=== PATIENT | female | born 1960 | race Caucasian/White ===

== ENCOUNTER 2024-08-10 11:06 | Emergency (ER) | payer MEDICARE, SELFPAY ==
[2024-08-10 11:09] VITALS: BP 109/71; BMI 27.5
[2024-08-10 11:19] VITALS: BP 109/71
--- NOTE | 2024-08-10 11:20 | ED.GENMED ---
History of Present Illness
General
Chief Complaint: Abdominal Symptoms
Source: patient
Exam Limitations: none
Time Seen by Provider: 08/10/24 11:07
History of Present Illness
History of Present Illness:
64 year old female presents with 3 weeks of abdominal discomfort nausea vomiting and diarrhea. She is a type II diabetic. She has been on Mounjaro for 7 months. She has a history of diverticulitis requiring colon resection. She denies any blood
in the vomit or the stool. She denies fevers. She is unable to tolerate anything by mouth that comes right back up. No recent change in her medicine otherwise. No recent antibiotics. No known sick contacts. No other complaints at this time
Past History
Past History
ED Past Medical History: HTN, Hypothyroidism and Other (Diverticulitis, rheumatoid arthritis, hypertension, cdif)
ED Past Surgical History: Cholecystectomy, Gynecological and Orthopedic
Social History
Tobacco: Non-smoker
Alcohol: None
Drug: None
Personal:
Living: with family
Employment: Not employed
Family History
Family History: Other (Father has ulcerative colitis)
Phy Exam
Physical Exam
Physical Exam:
General: Well-appearing female no acute respiratory distress
HEENT: Normocephalic atraumatic neck is supple
Heart: Regular rate and rhythm no murmurs
Lungs: Clear no wheeze
Abdomen soft but tender to the mid and left abdomen no guarding rebound normal bowel sounds
Extremities: No cyanosis
Skin: Warm no rash
Course
Orders/Labs/Results
Orders:
Orders
08/10/24 11:18
CT Abd/pelvis W Iv Cont Urgent
Comment:
Reason For Exam: left sided pain, vomiting, diarrhea
0.9% Sodium Chloride 1000 ml [Nss] 1,000 ml IV BOLUS
Ondansetron Injectable [Zofran] 4 mg IV NOW STA
08/10/24 11:39
Basic Metabolic Panel Urgent
Complete Blood Count/With Diff Urgent
08/10/24 12:05
Comprehensive Metabolic Panel Urgent
Lipase Urgent
Abnormal Lab Results
08/10/24 08/10/24
11:39 12:05
MCV 79.9 L fL
(81.0-99.0)
Glucose 104 H mg/dl 102 H mg/dl
(70-99) (70-99)
08/10/24 11:39
08/10/24 12:05
Vital Signs
Initial and Last Documented VS:
Initial Vital Signs
Temp Pulse Resp BP Pulse Ox
98.3 F 82 18 109/71 98
08/10/24 11:09 08/10/24 11:09 08/10/24 11:09 08/10/24 11:09 08/10/24 11:09
Last Documented Vital Signs
Temp Pulse Resp BP Pulse Ox
98.3 F 82 18 94/60 100
08/10/24 11:09 08/10/24 11:09 08/10/24 11:09 08/10/24 15:29 08/10/24 15:30
MDM/Problems Addressed
Differential Diagnosis Includes:
Vomiting nausea abdominal pain diarrhea. Differential could include viral illness versus adverse reaction to Mounjaro versus electrolyte abnormality. No recent antibiotics but if patient does give stool sample can test for C. difficile. Check
labs hydrate with fluids Zofran ordered for nausea. Given tenderness on exam CT ordered.
*Critical Care Note
Total Time (30-74mins, 75-104mins- exclusive of procedures): Not Applicable
Update Note
Update Note:
Workup here essentially negative with labs. 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 Recommended hydration. Prescribe Zofran. Stable for discharge with follow-up.
ED Attending Note
-
Portions of this chart may have been created with voice recognition software.� Occasional wrong word or��sound alike� substitutions may have occurred due to the inherent limitations of voice recognition software.
Discharge Plan
Departure
Patient Disposition: Home (Routine Discharge)
Date of Disposition: 08/10/24
Time of Disposition: 15:44
Patient with high blood pressure during this ER visit?: No
Discharge Problem:
Vomiting
Instructions: Nausea and Vomiting, Adult (DC)
Prescriptions:
New
ondansetron 4 mg tablet,disintegrating
4 mg PO TID PRN (Reason: nausea and vomiting) Qty: 10 0RF
No Action
levothyroxine [Synthroid] 75 MCG tablet
75 mcg PO SUTUWETHSA
levothyroxine 50 MCG tablet
50 mcg PO MOFR
atorvastatin 20 mg Tablet
20 mg PO QPM
sertraline 100 mg Tablet
100 mg PO DAILY
methylprednisolone 4 mg Tablet
8 mg PO DAILY
alprazolam 0.25 mg Tablet
0.25 mg PO DAILY
Patient Comments:
06/28/2023: last filled 05/05/22, 30 tabs [facility]
amitriptyline 25 mg Tablet
25 mg PO DAILY
metoprolol succinate 25 mg Tablet Extended Release 24 Hr
25 mg PO DAILY
fluticasone propionate 50 mcg/actuation [place],Suspension
1 spray INTRANASAL DAILY
dexlansoprazole 60 mg Capsule,Biphase Delayed Releas
60 mg PO DAILY
Vitamin B-12 1,000 mcg/mL Drops
1 ml PO MONTHLY
ondansetron 4 mg Tablet,Disintegrating
4 mg PO Q6H PRN (Reason: nausea)
hydrocodone-acetaminophen 5-325 mg Tablet
1 tab PO PRN PRN (Reason: pain)
insulin glargine [Lantus Solostar U-100 Insulin] 100 unit/mL (3 mL) insulin pen
25 unit SC QPM Qty: 15 5RF
Miconazole-3 200 mg Suppository
200 mg VAG HS Qty: 1 0RF
insulin aspart U-100 [Novolog FlexPen U-100 Insulin] 100 unit/mL (3 mL) Insulin Pen
15 unit SC AC Qty: 15 5RF
(DME) pen needle, diabetic [BD Ultra-Fine Raegan Pen Needle] 32 gauge x 5/32' needle
See Rx Instructions .Route Qty: 100 0RF
Rx Instructions:
As directed
(DME) lancets [BD Ultra Fine Lancets] 33 gauge misc
See Rx Instructions .Route Qty: 100 0RF
Rx Instructions:
As directed
(DME) blood sugar diagnostic Strip
See Rx Instructions .Route Qty: 100 0RF
Rx Instructions:
As directed
Referrals:
Sun Andrade CRNP [Family Provider] -
Activity Restrictions/Additional Instructions:
Drink plenty of fluid. Use Zofran if needed for nausea. Turn if worse otherwise follow-up with your doctor
Interventions
Interventions:
*Risk Screen - Suicide Last Done: 08/10/24 11:09
*General Assessment Last Done: 08/10/24 11:09
*Neglect/Abuse Screening Last Done: 08/10/24 11:09
ED- Fall Risk Assessment Last Done: 08/10/24 11:09
*ED COVID-19 Vaccine History Last Done: 08/10/24 11:09
EY-Unavef-Bopjoxpryn Assessment Last Done: 08/10/24 11:09
Discharge Date and Time
Print Language: TURKMEN
[2024-08-10 11:49] LABS: % Basophils 0.2 % (0-2); % Eosinophils 3.6 % (0-6); % Immature Granulocytes 0.2 % (0-0.5); % Lymphocytes 25.2 % (20.5-51.1); % Monocytes 6.2 % (1.7-9.3); % Neutrophils 64.6 % (42.2-75.2); Absolute Eosinophils 0.3 10^3/uL (0-0.7); Absolute Lymphocytes 2.1 10^3/uL (1.2-3.4); Absolute Monocytes 0.5 10^3/uL (0.1-0.6); Absolute Neutrophils 5.4 10^3/uL (1.4-6.5); Hematocrit 38.9 % (37.0-47.0); Hemoglobin 13.6 g/dL (12.0-16.0); Mean Corpuscular Hgb 27.9 pg (27.0-31.0); Mean Corpuscular Volume 79.9 fL (81.0-99.0); Mean Platelet Volume 9.1 fL (7.4-10.4); Nucleated Red Blood Cells % 0 %; Platelet Count 254 10^3/uL (130-400); Red Blood Cell Count 4.87 10^6/uL (4.20-5.40); White Blood Cell Count 8.3 10^3/uL (4.8-10.8)
[2024-08-10 12:00] VITALS: BP 93/70
[2024-08-10 12:11] LABS: Blood Urea Nitrogen 14 mg/dl (7-17); Calcium 9.6 mg/dl (8.4-10.2); Carbon Dioxide 28 mmol/L (22-30); Chloride 100 mmol/L (98-107); Estimated Creatinine Clearance 75 ml/min; Glucose 104 mg/dl (70-99); Sodium 142 mmol/L (135-145); eGFR > 60.00
[2024-08-10 12:38] LABS: ALT (SGPT) 22 U/L (0-35); AST (SGOT) 24 U/L (14-36); Albumin 4.4 g/dl (3.5-5.0); Alkaline Phosphatase 103 U/L (38-126); Blood Urea Nitrogen 14 mg/dl (7-17); Calcium 9.6 mg/dl (8.4-10.2); Carbon Dioxide 27 mmol/L (22-30); Chloride 99 mmol/L (98-107); Estimated Creatinine Clearance 75 ml/min; Glucose 102 mg/dl (70-99); Lipase 175 U/L (23-300); Potassium 3.7 mmol/L (3.5-5.1); Sodium 141 mmol/L (135-145); Total Bilirubin 1.2 mg/dl (0.2-1.3); Total Protein 7.1 g/dl (6.3-8.2); eGFR > 60.00
--- NOTE | 2024-08-10 12:46 | VATNOTE ---
Attempts to place INT unsuccessful,, PA to place US guided IV
[2024-08-10] MEDS: NSS 1000 IV (12:58)
[2024-08-10] MEDS: ZOFRAN 4 MG IV (12:58)
[2024-08-10 13:01] VITALS: BP 99/73
[2024-08-10 15:29] VITALS: BP 94/60
== END 2024-08-10 16:25 | disposition home or self-care (01) ==
LOC: EMR 11:06
PROVIDERS: Physician Assistant; EMERGENCY PHYSICIAN Emergency Medicine; FAMILY PHYSICIAN Nurse Practitioner Primary Care
DX: R11.2 Nausea with vomiting, unspecified (principal); R19.7 Diarrhea, unspecified; R10.9 Unspecified abdominal pain; E11.9 Type 2 diabetes mellitus without complications; E03.9 Hypothyroidism, unspecified; I10 Essential (primary) hypertension; Z87.19 Personal history of other diseases of the digestive system; Z90.49 Acquired absence of other specified parts of digestive tract; Z79.85 Long-term (current) use of injectable non-insulin antidiabetic drugs
CPT/HCPCS: 96374; 96361; 99284; 74177; 80048; 80053; 83690; 85025; Q9967

== ENCOUNTER 2025-08-07 01:55 | Emergency (ER) | payer MEDICARE, SELFPAY ==
[2025-08-07 02:06] VITALS: BP 118/74
[2025-08-07 02:34] LABS: Hematocrit 38.6 % (37.0-47.0); Hemoglobin 13.8 g/dL (12.0-16.0); Mean Corp Hgb Conc. 35.8 g/dL (33.0-37.0); Mean Corpuscular Volume 80.6 fL (81.0-99.0); Nucleated Red Blood Cells % 0 %; Platelet Count 243 10^3/uL (130-400); Red Cell Dist. Width 12.9 % (11.5-14.5)
[2025-08-07 02:58] LABS: ALT (SGPT) 78 U/L (0-35); AST (SGOT) 40 U/L (14-36); Albumin 4.4 g/dl (3.5-5.0); Alkaline Phosphatase 86 U/L (38-126); Blood Urea Nitrogen 13 mg/dl (7-17); Calcium 9.4 mg/dl (8.4-10.2); Carbon Dioxide 28 mmol/L (22-30); Chloride 104 mmol/L (98-107); Glucose 128 mg/dl (70-99); Potassium 3.5 mmol/L (3.5-5.1); Sodium 141 mmol/L (135-145); Total Protein 7.3 g/dl (6.3-8.2); eGFR > 60.00
[2025-08-07 03:55] VITALS: BP 100/62
[2025-08-07 05:46] VITALS: BP 130/101
[2025-08-07 05:50] VITALS: BMI 28.3
[2025-08-07 06:01] VITALS: BP 115/86
[2025-08-07 06:13] LABS: Lipase 140 U/L (23-300)
[2025-08-07] MEDS: TORADOL 15 MG IV ×2 (06:18→08:51)
--- NOTE | 2025-08-07 06:32 | ED.GENMED ---
History of Present Illness
<Anastasia Valencia PA-C - Last Filed: 08/07/25 14:27>
General
Chief Complaint: Flank Pain
Source: patient
Exam Limitations: none
Time Seen by Provider: 08/07/25 06:14
Nursing documentation reviewed up to this point in time: agreed with
History of Present Illness
History of Present Illness:
SEE mdm
Past History
<TREVON Ross Last Filed: 08/07/25 14:27>
Past History
ED Past Medical History: HTN, Hypothyroidism and Other (Diverticulitis, rheumatoid arthritis, hypertension, cdif)
ED Past Surgical History: Cholecystectomy, Gynecological and Orthopedic
Social History
Tobacco: Non-smoker
Alcohol: None
Drug: None
Personal:
Living: with family
Employment: Not employed
Family History
Family History: Other (Father has ulcerative colitis)
Phy Exam
<TREVON Ross Last Filed: 08/07/25 14:27>
Physical Exam
Physical Exam:
GENERAL: Alert , uncomfortable
EYE: pupils equal and reactive
NECK: Supple
ENT: o/p clr, mmm.
CARDIAC: Regular rate and rhythm .
LUNGS: Clear breath sounds bilaterally, no acute respiratory distress, no wheezes/rales/rhonchi
ABDOMEN: Soft, without focal tenderness, no r/g, no cvat, normal bowel sounds
Patient feels better with palpation on the left flank, there is no skin changes, no CVA tenderness, normal strength and sensation in the leg
NEUROLOGICAL: Alert and oriented, no focal neuro deficits
SKIN: Warm and dry, skin intact.
MUSCULOSKELETAL: No edema, well perfused. neg joss's sign
PSYCH: Normal and appropriate interaction.
Course
<Anastasia Valencia PA-C - Last Filed: 08/07/25 14:27>
Orders/Labs/Results
Orders:
Orders
08/07/25 02:24
CMP [Comprehensive Metabolic Panel] Urgent
Complete Blood Count/With Diff Urgent
Lipase Urgent
Comment: ADD ON
08/07/25 05:34
Add On- LAB Urgent
Tests Added?: Lipase
08/07/25 06:12
Ketorolac [Toradol] 15 mg IV NOW STA
08/07/25 06:25
CT Abd/pel Without Iv Or Oral Urgent
Comment:
Reason For Exam: L flank pain; nontender;
0.9% Sodium Chloride 1000 ml [Nss] 1,000 ml IV BOLUS
HYDROmorphone [Dilaudid] 1 mg IV NOW STA
Ondansetron Injectable [Zofran] 4 mg IV NOW STA
08/07/25 08:45
Ketorolac [Toradol] 15 mg IV NOW STA
08/07/25 08:51
Urinalysis Reflex To Culture Urgent
Date Specimen was Collected: 08/07/25
Time Specimen was Collected: 08:49
Urine Microscopic Reflex Cult Urgent
Urine Culture Urgent
SHANI Source: U
Specimen Description:
Date Specimen was Collected: 08/07/25
Time Specimen was Collected: 08:49
08/07/25 11:45
CT Abd/Pel (IV only)-DH only Urgent
Comment:
Reason For Exam: L flank pain, severe
HYDROmorphone [Dilaudid] 1 mg IV NOW STA
Abnormal Lab Results
08/07/25 08/07/25
02:24 08:51
MCV 80.6 L fL
(81.0-99.0)
Glucose 128 H mg/dl
(70-99)
AST 40 H U/L
(14-36)
ALT 78 H U/L
(0-35)
Leukocyte Esterase Rfl 1+ A
(Negative)
Urine Bacteria (Reflex) Few A
(Negative)
Urine Albumin (Reflex) 2+ A
(Neg - Trace)
08/07/25 02:24
08/07/25 02:24
Vital Signs
Initial and Last Documented VS:
Initial Vital Signs
Temp Pulse Resp BP Pulse Ox
37.1 C 95 18 118/74 97
08/07/25 02:06 08/07/25 02:06 08/07/25 02:06 08/07/25 02:06 08/07/25 02:06
Last Documented Vital Signs
Temp Pulse Resp BP Pulse Ox
36.4 C 85 14 115/86 92
08/07/25 06:00 08/07/25 11:00 08/07/25 11:00 08/07/25 06:01 08/07/25 08:00
Dorothylt;Zach Oliva, DO - Last Filed: 08/07/25 11:48>
Orders/Labs/Results
Orders:
Orders
08/07/25 02:24
CMP [Comprehensive Metabolic Panel] Urgent
Complete Blood Count/With Diff Urgent
Lipase Urgent
Comment: ADD ON
08/07/25 05:34
Add On- LAB Urgent
Tests Added?: Lipase
08/07/25 06:12
Ketorolac [Toradol] 15 mg IV NOW STA
08/07/25 06:25
CT Abd/pel Without Iv Or Oral Urgent
Comment:
Reason For Exam: L flank pain; nontender;
0.9% Sodium Chloride 1000 ml [Nss] 1,000 ml IV BOLUS
HYDROmorphone [Dilaudid] 1 mg IV NOW STA
Ondansetron Injectable [Zofran] 4 mg IV NOW STA
08/07/25 08:45
Ketorolac [Toradol] 15 mg IV NOW STA
08/07/25 08:51
Urinalysis Reflex To Culture Urgent
Date Specimen was Collected: 08/07/25
Time Specimen was Collected: 08:49
Urine Microscopic Reflex Cult Urgent
Urine Culture Urgent
SHANI Source: U
Specimen Description:
Date Specimen was Collected: 08/07/25
Time Specimen was Collected: 08:49
08/07/25 11:45
CT Abd/Pel (IV only)-DH only Urgent
Comment:
Reason For Exam: L flank pain, severe
HYDROmorphone [Dilaudid] 1 mg IV NOW STA
Abnormal Lab Results
08/07/25 08/07/25
02:24 08:51
MCV 80.6 L fL
(81.0-99.0)
Glucose 128 H mg/dl
(70-99)
AST 40 H U/L
(14-36)
ALT 78 H U/L
(0-35)
Leukocyte Esterase Rfl 1+ A
(Negative)
Urine Bacteria (Reflex) Few A
(Negative)
Urine Albumin (Reflex) 2+ A
(Neg - Trace)
08/07/25 02:24
08/07/25 02:24
Vital Signs
Initial and Last Documented VS:
Initial Vital Signs
Temp Pulse Resp BP Pulse Ox
37.1 C 95 18 118/74 97
08/07/25 02:06 08/07/25 02:06 08/07/25 02:06 08/07/25 02:06 08/07/25 02:06
Last Documented Vital Signs
Temp Pulse Resp BP Pulse Ox
36.4 C 85 14 115/86 92
08/07/25 06:00 08/07/25 11:00 08/07/25 11:00 08/07/25 06:01 08/07/25 08:00
<Anastasia Valencia PA-C - Last Filed: 08/07/25 14:27>
MDM/Problems Addressed
Differential Diagnosis Includes:
see MDM
MDM/Problems Addressed:
Note:
CHIEF COMPLAINT(S)
Severe back pain radiating to the front.
HISTORY OF PRESENT ILLNESS
The patient is a 65-year-old female with a history of bowel disease and bowel paucity, presenting with severe L back pain that started approximately four days ago. Initially described as sciatic pain, the discomfort now is concentrated in the center
of the back and radiates to the abdomen specifically L flank. The patient reports the sensation is extremely painful, to the extent that she 'cant even stand it� and rates it as so severe she 'could .�
The patient describes the pain as affecting the Left half of her body, extending from her back to the skin, which she notes feels warm and sore, although there is no visible rash. There is no history of fever, chills, diarrhea, or vomiting. The
patient has not noticed any urinary complaints or symptoms suggestive of a urinary tract infection. She notes that her pain improves with pressure on her abdomen. The patient has a history of significant bowel surgeries, including colectomies with
complications such as abscess formation and recurrent infections post-operatively.
PAST MEDICAL AND SURGICAL HISTORY
The patient has a history of bowel disease requiring multiple surgeries, including a colectomy and treatment for gastroparesis. She also reported past instances of ovarian abscesses.
CHRONIC MEDICAL CONDITIONS SIGNIFICANTLY AFFECTING CARE
Gastroparesis, requiring chronic medication to assist bowel function.
MEDICATIONS
The patient is currently taking Amitriptyline for bowel-related neuropathy and Vicodin for pain management, having taken two tablets before bed.
REVIEW OF SYSTEMS
- Musculoskeletal: Severe and persistent back pain radiating to the abdomen, worsened with movement.
- Integumentary: Skin on the right side feels warm and sore, but no rash is present.
- Gastrointestinal: No diarrhea; previous bowel surgery with significant past complications.
- Urinary: No frequency or urgency. Reports ability to provide a urine sample if needed.
PHYSICAL EXAM
- Skin: Warm and tender to touch over the back and right side, no rash noted.
- Abdomen: Pain alleviated by pressure; otherwise notable for soreness.
Nursing notes reviewed and vital signs reviewed.
PROBLEM LIST
Acute Problems:
- Severe back pain with possible radicular symptoms.
- Possible referred abdominal pain.
Chronic Problems:
- Gastroparesis.
- History of bowel disease and related complications.
PLAN
- Consider imaging studies to evaluate for potential renal calculi or other causes of referred pain.
- Urinalysis to rule out urinary tract infection.
- Administer alternative pain management medication with consideration of past medication history.
- Monitor skin for any delayed rash development suggestive of a zoster infection despite current lack of rash.
- Consider consulting surgery if symptoms persist or worsen, given the patients surgical history and complications.
DIFFERENTIAL DIAGNOSIS
The Differential Diagnosis includes, in no particular order and is not limited to:
- Sciatica
- Kidney stone
- Abdominal abscess
- Spinal cord pathology
- Referred pain from gastrointestinal pathology
- Osteomyelitis or vertebral infection
- Herpes zoster without current rash
- Abdominal aortic aneurysm
- Musculoskeletal strain
- Complex regional pain syndrome]]
65 Y/O F
some degree chronic pain but denies opiates daily
immunocompromised
'bowel paralysis', RA
has had multiple colitis/bowel resections
started with L sided back pain about 4 days ago with radiation to L flank
severe at times
feels like burning to skin and sensitive to light touch; feels better pressing the area in
no rash, fever, chills, dysuria, hematuria, vomiting, diarrhea
last bm a few days ago
doesn't feel like this is her bowels
on exam she has some skin sensitivie L flank but no tendernss
feels better with pressing on it
no hematuria
worse with position changes
sounds MSK back pain but pt says her pain was so severe t his AM she vomited and called 911
on exam pt is holding her side, feels better pressing it in
no abdominal tendenress
no rash
neg straight leg rasie
afebrile
nontoxic appearing
wbc normal
cr normal
CT stonesearch neg
pt was initially given toradol but keyes dno relief; given dilaudid and looked more comfortable though she was still c/o severe pain; she did admit that it improved some
her pain seems nerve=-like; no shingles rash
but has h/o DDD so perhaps radiculopathy pain
pending UA
would like to send pt home
will give 2nd dose of toradol
pt is not on daily steroids anymore
1130 - ua was unimpressive, 1+ LE, only a few wbc, few bacteria, some sqaumous cells
seen by ED attending
recommend given her level of pain to rescan with IV contrast this time, r/o renal infarct
a second dose of dilaudid ordered
[address] was again negative. After second dose of Dilaudid patient is much more comfortable. Discussed the case again with ED attending Dr. Oliva and patient is no findings concerning for for need for admission at this time. Her pain does
sound nerve based, which could be from degenerative disc disease versus shingles that has not erupted. Patient was insistent on getting a prescription for Valtrex just in case she gets the rash as well as gabapentin however she has reported
previous intolerance to gabapentin and she would like to try it again. She spoke with our pharmacist Anusha and we ultimately decided on 100 mg tablets that she would take up to 3 of them at night as needed, 100 to 300 mg nightly as needed pain.
She also takes Vicodin, I think quite regularly. She was counseled to space these out to avoid oversedation
<Anastasia Valencia PA-C - Last Filed: 08/07/25 14:27>
*Pulse Oximetry
SaO2: 98
Oxygen Mode of Delivery: Room air
Patient hypoxic: no (97)
*Critical Care Note
Total Time (30-74mins, 75-104mins- exclusive of procedures): Not Applicable
ED Attending Note
<Anastasia Valencia PA-C - Last Filed: 08/07/25 14:27>
-
Portions of this chart may have been created with voice recognition software.� Occasional wrong word or��sound alike� substitutions may have occurred due to the inherent limitations of voice recognition software.
<Zach Oliva DO - Last Filed: 08/07/25 11:48>
ED Attending Note
Patient seen and examined by attending physician: Yes
I performed the substantive portion of visit, reviewed & personally made and approve the management plan that is documented in note by myself or ARABELLA.: Yes
ED Attending Note:
I agree with Lynne's note
Patient presents with left-sided flank pain that is severe and has been present for the past 3 days. She has had some associated nausea vomiting. Patient states the pain radiates from the back around to the front of her abdomen to the midline. No
right-sided symptoms. Patient states she has a complicated history of 'bowel infections' and a ovarian abscess. No fever or chills.
General: Awake, Alert, Oriented X3. No acute distress.
Vitals: unremarkable
Head: Atraumatic
Eyes: Pupils equal, EOMI
Throat: Airway intact, no exudates
Neck: Trachea midline
Lungs: Clear and equal b/l
Heart: Regular rate, no murmurs
Abd: Soft, Nontender, No pulsatile mass
Back: No CVA tenderness to percussion. Skin overlying the indicated area of pain is hypersensitive
Neuro: Nonfocal
Skin: Warm, dry, no rash
Extremities: pulses equal b/l, no edema
Overall presentation seems more consistent with zoster that has not helped the rash and warm a never developed rash. However will obtain a CT with IV contrast to exclude a renal infarct or any other significant intra-abdominal pathology. Noncon
CAT scan did not show the acute but of course would not see an infarct that may be limited instantly inflammatory changes.
Discharge Plan
Departure
Patient Disposition: Home (Routine Discharge)
Date of Disposition: 08/07/25
Time of Disposition: 13:28
Patient with high blood pressure during this ER visit?: No
Condition: Fair
Covid-19: Not Applicable
Discharge Problem:
Flank pain
Instructions: Flank Pain (DC)
Prescriptions:
New
gabapentin 300 mg capsule
300 mg PO HS Qty: 10 0RF
gabapentin 100 mg capsule
100 mg PO HS PRN (Reason: pain) Qty: 15 0RF
valacyclovir 1 gram tablet
1,000 mg PO Q8H Qty: 21 0RF
No Action
levothyroxine [Synthroid] 75 MCG tablet
75 mcg PO SUTUWETHSA
levothyroxine 50 MCG tablet
50 mcg PO MOFR
atorvastatin 20 mg Tablet
20 mg PO QPM
sertraline 100 mg Tablet
100 mg PO DAILY
methylprednisolone 4 mg Tablet
8 mg PO DAILY
alprazolam 0.25 mg Tablet
0.25 mg PO DAILY
Patient Comments:
06/28/2023: last filled 05/05/22, [facility]
amitriptyline 25 mg Tablet
25 mg PO DAILY
metoprolol succinate 25 mg Tablet Extended Release 24 Hr
25 mg PO DAILY
fluticasone propionate 50 mcg/actuation [place],Suspension
1 spray INTRANASAL DAILY
dexlansoprazole 60 mg Capsule,Biphase Delayed Releas
60 mg PO DAILY
Vitamin B-12 1,000 mcg/mL Drops
1 ml PO MONTHLY
ondansetron 4 mg Tablet,Disintegrating
4 mg PO Q6H PRN (Reason: nausea)
hydrocodone-acetaminophen 5-325 mg Tablet
1 tab PO PRN PRN (Reason: pain)
insulin glargine [Lantus Solostar U-100 Insulin] 100 unit/mL (3 mL) insulin pen
25 unit SC QPM Qty: 15 5RF
Miconazole-3 200 mg Suppository
200 mg VAG HS Qty: 1 0RF
insulin aspart U-100 [Novolog FlexPen U-100 Insulin] 100 unit/mL (3 mL) Insulin Pen
15 unit SC AC Qty: 15 5RF
(DME) pen needle, diabetic [BD Ultra-Fine Raegan Pen Needle] 32 gauge x 5/32' needle
See Rx Instructions .Route Qty: 100 0RF
Rx Instructions:
As directed
(DME) lancets [BD Ultra Fine Lancets] 33 gauge misc
See Rx Instructions .Route Qty: 100 0RF
Rx Instructions:
As directed
(DME) blood sugar diagnostic Strip
See Rx Instructions .Route Qty: 100 0RF
Rx Instructions:
As directed
ondansetron 4 mg tablet,disintegrating
4 mg PO TID PRN (Reason: nausea and vomiting) Qty: 10 0RF
Referrals:
Marcial Benson DO [Family Provider, Internal Medicine] - Follow up in 5-7 days
Activity Restrictions/Additional Instructions:
WE ARE NOT SURE THE CAUSE OF YOUR PAIN
YOU HAD TESTING THAT DID NOT REVEAL OBVIOUS CAUSE
YOU DO HAVE A DOMINANT FOLLICLE L OVARY THAT IS UNLIKELY THE CAUSE
YOUR URINE DOES NOT LOOK TO BE SOURCE OF INFECTION
YOU HAD NO SIGNS OF KIDNEY STONES
THIS PAIN SOUNDS NEUROPATHIC WHICH CAN BE FROM DISC HERNIATION/DISC DISEASE IN BACK OR EVEN SHINGLES
TAKE YOUR PAIN MEDICATION PRESCRIBED
WATCH FOR A RASH, AND IF YOU HAVE ONE, YOU CAN START ANTIVIRAL MEDICATION
RETURN FOR: FEVER, CHILLS, VOMITING, SEVERE PAIN, BLOODY URINE, OR ANY CONCERNS
OTHERWISE SEE YOUR DOCTOR THIS WEEK
YOU CAN TAKE GABAPENTIN 1 TAB AT NIGHT (UP TO 3 TABS 300 MG) NEEDED
DO NOT COMBINE THIS WITH OTHER SEDATING MEDICATION
IF YOU SEE A RASH, YOU CAN STARY THE GABAPENTIN
IT WILL NOT HELP TO START THIS IF YOU DO NOT GET THE RASH
Interventions
Interventions:
*Risk Screen - Suicide Last Done: 08/07/25 02:06
*General Assessment Last Done: 08/07/25 05:50
*Neglect/Abuse Screening Last Done: 08/07/25 02:06
*ED- Fall Risk Assessment Last Done: 08/07/25 05:50
*ED COVID-19 Vaccine History Last Done: 08/07/25 05:50
ID-Kwedyt-Wnzvrpmzfl Assessment Last Done: 08/07/25 05:50
ED-Female Genitourinary Assessment Last Done: 08/07/25 05:50
Discharge Date and Time
Print Language: GERMAN
[2025-08-07] MEDS: NSS 1000 IV (06:35)
[2025-08-07] MEDS: DILAUDID 1 MG IV ×2 (06:36→11:52)
[2025-08-07] MEDS: ZOFRAN 4 MG IV (06:36)
[2025-08-07 09:28] LABS: Urine Character Slightly Cloudy (Clear)
[2025-08-07 10:26] LABS: Urine Red Blood Cell 0-2 /HPF (0-2)
== END 2025-08-07 14:35 | disposition home or self-care (01) ==
LOC: EMR 01:55
PROVIDERS: Emergency Medicine; Physician Assistant; EMERGENCY PHYSICIAN Emergency Medicine; FAMILY PHYSICIAN Internal Medicine
DX: R10.9 Unspecified abdominal pain (principal); I10 Essential (primary) hypertension; E03.9 Hypothyroidism, unspecified; K31.84 Gastroparesis; K59.2 Neurogenic bowel, not elsewhere classified; M06.9 Rheumatoid arthritis, unspecified; M51.9 Unspecified thoracic, thoracolumbar and lumbosacral intervertebral disc disorder; Z86.19 Personal history of other infectious and parasitic diseases; Z90.49 Acquired absence of other specified parts of digestive tract; Z83.79 Family history of other diseases of the digestive system
CPT/HCPCS: 99284; 96374; 96375 ×2; 96376 ×2; 96361; 74176; 74177; 80053; 81003; 81015; 83690; 85025; 87086; Q9967